=== PATIENT | female | born 1995 | race African-American/Black ===

== ENCOUNTER 2017-04-29 02:33 | Emergency (ER) | payer SELFPAY ==
[~2017-04-29] VITALS: Ht 170.2 cm; Wt 90.7 kg
[2017-04-29] VITALS (31 sets, daily range): BP systolic 92–153; BP diastolic 44–84
[2017-04-29] MEDS ORDERED: LORazepam Inj 2mg/ml 1ml IM ONE ×3 (02:45→19:45)
[2017-04-29] MEDS ORDERED: DiphenhydrAMINE 50mg/ml Inj IM ONE ×2 (03:00→20:15)
[2017-04-29] MEDS ORDERED: Haloperidol 5mg/ml Inj IM ONE ×2 (03:00→20:15)
[2017-04-29 04:14] LABS: BASOPHILS % (AUTO) 1.3 % (0.0-2.0); EOSINOPHILS % (AUTO) 0.5 % (0.0-3.0); HEMATOCRIT 41.8 % (37.0-47.0); HEMOGLOBIN 14.5 G/DL (12.0-16.0); LYMPHOCYTES % (AUTO) 35.9 % (20.0-45.0); MEAN CORPUSCULAR VOLUME 94 FL (80-99); MONOCYTES % (AUTO) 9.1 % (1.0-10.0); NEUTROPHILS % (AUTO) 53.3 % (45.0-75.0); PLATELET COUNT 235 K/UL (150-450); RED BLOOD COUNT 4.44 M/UL (4.20-5.40); RED CELL DISTRIBUTION WIDTH 11.4 % (11.6-14.8); WHITE BLOOD COUNT 5.8 K/UL (4.8-10.8)
[2017-04-29 04:20] LABS: ANION GAP 9 mmol/L (5-15); BLOOD UREA NITROGEN 10 mg/dL (7-18); CALCIUM 8.5 MG/DL (8.5-10.1); CARBON DIOXIDE 28 MMOL/L (21-32); CHLORIDE 103 MMOL/L (98-107); CREATININE 1.2 MG/DL (0.55-1.30); POTASSIUM 3.4 MMOL/L (3.5-5.1); SODIUM 140 MMOL/L (136-145)
[2017-04-29 04:24] LABS: ALANINE AMINOTRANSFERASE 38 U/L (12-78); ALBUMIN 3.8 G/DL (3.4-5.0); ALKALINE PHOSPHATASE 87 U/L (46-116); ASPARTATE AMINO TRANSFERASE 28 U/L (15-37); BILIRUBIN,TOTAL 0.5 MG/DL (0.2-1.0)
--- NOTE | 2017-04-29 06:46 | Emergency Room Report ---
History of Present Illness General Chief Complaint: Altered Level of Consciousness Source: EMS Present Illness HPI 21-year-old male identifying as female presents ED for evaluation. Patient brought in by EMS found altered on the street. Accu-Chek was in the 50s. States that patient was very agitated and combative. Appears confused. Patient is not providing name. Denies alcohol or drug use. States that she wants to leave. Denies suicidal or homicidal ideation. No other aggravating relieving factors. No other associated symptoms Allergies: Coded Allergies: UNABLE TO ASSESS (Unverified , 04/29/17) Patient History Past Medical History: none Past Surgical History: none Pertinent Family History: none Social History: Denies: smoking, alcohol use, drug use Last Menstrual Period: unknown Now: No Immunizations: UTD Reviewed Nursing Documentation: PMH: Agreed, PSxH: Agreed Nursing Documentation-PMH Past Medical History Deferred: Pt Cognitively Impaired Review of Systems All Other Systems: limited Physical Exam Vital Signs Date Time Temp Pulse Resp B/P (MAP) Pulse Ox O2 Delivery O2 Flow Rate FiO2 04/29/17 02:33 97.4 70 18 143/70 99 Room Air 97.3 Sp02 EP Interpretation: reviewed, normal General Appearance: no apparent distress, GCS 15, non-toxic, obese Head: normocephalic, atraumatic Eyes: bilateral eye normal inspection, bilateral eye PERRL ENT: hearing grossly normal, normal pharynx, no angioedema, normal voice Neck: full range of motion, supple/symm/no masses Respiratory: chest non-tender, lungs clear, normal breath sounds, speaking full sentences Cardiovascular #1: regular rate, rhythm, no edema Cardiovascular #2: 2+ carotid (R), 2+ carotid (L), 2+ radial (R), 2+ radial (L) , 2+ dorsalis pedis (R), 2+ dorsalis pedis (L) Gastrointestinal: normal bowel sounds, non tender, soft, non-distended, no guarding, no rebound Rectal: deferred Genitourinary: normal inspection, no CVA tenderness Musculoskeletal: back normal, gait/station normal, normal range of motion, non- tender Neurologic: other - confused, lethargic Psychiatric: other - lethargic Reflexes: 3+ bicep (R), 3+ bicep (L), 3+ tricep (R), 3+ tricep (L), 3+ knee (R) , 3+ knee (L) Skin: normal color, no rash, warm/dry, well hydrated Lymphatic: no adenopathy Medical Decision Making Diagnostic Impression: Primary Impression: Substance abuse ER Course Hospital Course 21-year-old F presents to ED with altered mental status. accucheck in 50s, agitated/combatitve Differential diagnoses include: Psychosis, EtOH, drug abuse Clinical course patient placed on stretcher. On awake overnight monitor. After initial history and physical ordered labs, IVFs, haldol/ativen/benedryl. placed in restraints Labs reviewed-electrolytes okay, no leukocytosis, hemoglobin/hematocrit stable, tox panel + for multilple substances Patient is now awake alert oriented. Patient will be discharged to home i. I feel this is a highly complex case requiring extensive working including EKG/Rhythm strip, Xray/CT/US, Blood/urine lab work, repeat exams while in ED, and administration of strong opiates/narcotics for pain control, admission to hospital or close patient follow up. Diagnosis - substance abuse Stable and discharged to home. Followup with PMD. Return to ED if symptoms recur or worsen Labs Test 04/29/17 03:45 04/29/17 04:04 Urine Opiates Screen Negative (NEGATIVE) Urine Barbiturates Screen Negative (NEGATIVE) Phencyclidine (PCP) Screen Negative (NEGATIVE) Urine Amphetamines Screen Positive (NEGATIVE) Urine Benzodiazepines Screen Negative (NEGATIVE) Urine Cocaine Screen Negative (NEGATIVE) Urine Marijuana (THC) Screen Positive (NEGATIVE) White Blood Count 5.8 K/UL (4.8-10.8) Red Blood Count 4.44 M/UL (4.20-5.40) Hemoglobin 14.5 G/DL (12.0-16.0) Hematocrit 41.8 % (37.0-47.0) Mean Corpuscular Volume 94 FL (80-99) Mean Corpuscular Hemoglobin 32.6 PG (27.0-31.0) Mean Corpuscular Hemoglobin Concent 34.6 G/DL (32.0-36.0) Red Cell Distribution Width 11.4 % (11.6-14.8) Platelet Count 235 K/UL (150-450) Mean Platelet Volume 7.8 FL (6.5-10.1) Neutrophils (%) (Auto) 53.3 % (45.0-75.0) Lymphocytes (%) (Auto) 35.9 % (20.0-45.0) Monocytes (%) (Auto) 9.1 % (1.0-10.0) Eosinophils (%) (Auto) 0.5 % (0.0-3.0) Basophils (%) (Auto) 1.3 % (0.0-2.0) Sodium Level 140 MMOL/L (136-145) Potassium Level 3.4 MMOL/L (3.5-5.1) Chloride Level 103 MMOL/L (98-107) Carbon Dioxide Level 28 MMOL/L (21-32) Anion Gap 9 mmol/L (5-15) Blood Urea Nitrogen 10 mg/dL (7-18) Creatinine 1.2 MG/DL (0.55-1.30) Estimat Glomerular Filtration Rate > 60 mL/min (>60) Glucose Level 83 MG/DL (74-106) Calcium Level 8.5 MG/DL (8.5-10.1) Total Bilirubin 0.5 MG/DL (0.2-1.0) Aspartate Amino Transf (AST/SGOT) 28 U/L (15-37) Alanine Aminotransferase (ALT/SGPT) 38 U/L (12-78) Alkaline Phosphatase 87 U/L (46-116) Total Protein 7.6 G/DL (6.4-8.2) Albumin 3.8 G/DL (3.4-5.0) Globulin 3.8 g/dL Albumin/Globulin Ratio 1.0 (1.0-2.7) Salicylates Level 3.1 ug/mL (2.8-20) Acetaminophen Level < 2 MCG/ML (10-30) Serum Alcohol 7 mg/dL Last Vital Signs Date Time Temp Pulse Resp B/P (MAP) Pulse Ox O2 Delivery O2 Flow Rate FiO2 04/29/17 06:27 97.3 65 17 100 Room Air 04/29/17 05:02 131/63 Status: improved Disposition: HOME, SELF-CARE Condition: Stable Referrals: NON PHYSICIAN (PCP) DREW MEANS M.D. Apr 29, 2017 06:46
--- NOTE | 2017-04-29 08:39 | Diagnostic Imaging Report ---
Indication: Altered mental status Technique: Continuous helical CT scanning of the head was performed without intravenous contrast material. Axial and coronal 5 mm sections were generated. Radiation dose was minimized using automated exposure control Dose: Total Dose Length Product - DLP 1115.[address] Dose Index - CTDIvol(s) 70.38 mGy. Comparison: Findings: The ventricular system is normal in size and configuration. There is no shift of midline structures. No abnormal extra-axial fluid collections are noted. There is no evidence of intracerebral bleeding. No other abnormal high or low density areas are noted within the brain. Impression: Normal CT scan of the head without contrast material. The CT scanner at [facility] is accredited by the [employer] and the scans are performed using protocols designed to limit radiation exposure to as low as reasonably achievable to attain images of sufficient resolution adequate for diagnostic evaluation.
--- NOTE | 2017-04-29 21:35 | Consultation ---
History of Present Illness General Date patient seen: Apr 29, 2017 Chief Complaint: Altered Level of Consciousness Present Illness HPI '21 yo transgender male to female pw to er. the pt stated that she has been hearing voices "Roxann wants to hurt me and i want to hurt myself" the pt was confused and sedated just received ativan Allergies: Coded Allergies: UNABLE TO ASSESS (Unverified , 04/29/17) Patient History Limited by: medical condition History Provided By: Patient, Medical Record, PMD Healthcare decision maker Resuscitation status Advanced Directive on File Past Medical/Surgical History Past Medical/Surgical History: (1) Substance abuse (2) Altered level of consciousness Review of Systems Psychiatric: Reports: prior hx, anxiety, depressed feelings, emotional problems , hallucinations Physical Exam General Appearance: no apparent distress, alert Neurologic: oriented x 3, responsive, depressed affect Last 24 Hour Vital Signs Date Time Temp Pulse Resp B/P (MAP) Pulse Ox O2 Delivery O2 Flow Rate FiO2 04/29/17 17:26 97.6 66 16 92/59 94 Room Air 97.6 04/29/17 12:00 98.0 54 18 100 Room Air 04/29/17 11:45 98.0 54 18 100 Room Air 04/29/17 11:30 98.0 54 16 100 Room Air 04/29/17 11:15 98.0 54 14 100 Room Air 04/29/17 11:00 98.0 54 14 100 Room Air 04/29/17 10:45 98.0 54 16 127/58 96 Room Air 98.0 04/29/17 10:45 98.0 54 16 100 Room Air 04/29/17 10:30 98.0 54 20 100 Room Air 04/29/17 07:56 62 14 120/59 100 Room Air 04/29/17 06:42 58 12 124/59 100 Room Air 04/29/17 06:41 97.3 56 12 100 Room Air 04/29/17 06:27 97.3 65 17 100 Room Air 04/29/17 06:12 97.3 69 15 100 Room Air 04/29/17 05:57 97.3 66 17 99 Room Air 04/29/17 05:42 97.3 68 19 100 Room Air 04/29/17 05:27 97.3 70 21 100 Room Air 04/29/17 05:12 97.3 72 14 100 Room Air 04/29/17 05:02 55 14 131/63 99 Room Air 04/29/17 04:57 97.3 57 14 100 Room Air 04/29/17 04:42 97.3 56 14 99 Room Air 04/29/17 04:27 97.3 59 16 98 Room Air 04/29/17 04:12 97.3 70 17 98 Room Air 04/29/17 03:57 97.3 64 16 100 Room Air 04/29/17 03:42 97.3 64 16 100 Room Air 04/29/17 03:27 97.3 76 20 100 Room Air 04/29/17 03:12 97.3 71 19 100 Room Air 04/29/17 02:57 97.3 77 16 99 Room Air 04/29/17 02:42 70 18 99 Room Air 04/29/17 02:42 97.3 70 18 143/70 99 Room Air 97.3 04/29/17 02:33 97.4 70 18 143/70 99 Room Air 97.3 Intake and Output 04/28/17 04/29/17 19:00 07:00 # Voids 1 Laboratory Tests Test 04/29/17 03:45 04/29/17 04:04 Urine Opiates Screen Negative (NEGATIVE) Urine Barbiturates Screen Negative (NEGATIVE) Phencyclidine (PCP) Screen Negative (NEGATIVE) Urine Amphetamines Screen Positive (NEGATIVE) H Urine Benzodiazepines Screen Negative (NEGATIVE) Urine Cocaine Screen Negative (NEGATIVE) Urine Marijuana (THC) Screen Positive (NEGATIVE) H White Blood Count 5.8 K/UL (4.8-10.8) Red Blood Count 4.44 M/UL (4.20-5.40) Hemoglobin 14.5 G/DL (12.0-16.0) Hematocrit 41.8 % (37.0-47.0) Mean Corpuscular Volume 94 FL (80-99) Mean Corpuscular Hemoglobin 32.6 PG (27.0-31.0) H Mean Corpuscular Hemoglobin Concent 34.6 G/DL (32.0-36.0) Red Cell Distribution Width 11.4 % (11.6-14.8) L Platelet Count 235 K/UL (150-450) Mean Platelet Volume 7.8 FL (6.5-10.1) Neutrophils (%) (Auto) 53.3 % (45.0-75.0) Lymphocytes (%) (Auto) 35.9 % (20.0-45.0) Monocytes (%) (Auto) 9.1 % (1.0-10.0) Eosinophils (%) (Auto) 0.5 % (0.0-3.0) Basophils (%) (Auto) 1.3 % (0.0-2.0) Sodium Level 140 MMOL/L (136-145) Potassium Level 3.4 MMOL/L (3.5-5.1) L Chloride Level 103 MMOL/L (98-107) Carbon Dioxide Level 28 MMOL/L (21-32) Anion Gap 9 mmol/L (5-15) Blood Urea Nitrogen 10 mg/dL (7-18) Creatinine 1.2 MG/DL (0.55-1.30) Estimat Glomerular Filtration Rate > 60 mL/min (>60) Glucose Level 83 MG/DL (74-106) Calcium Level 8.5 MG/DL (8.5-10.1) Total Bilirubin 0.5 MG/DL (0.2-1.0) Aspartate Amino Transf (AST/SGOT) 28 U/L (15-37) Alanine Aminotransferase (ALT/SGPT) 38 U/L (12-78) Alkaline Phosphatase 87 U/L (46-116) Total Protein 7.6 G/DL (6.4-8.2) Albumin 3.8 G/DL (3.4-5.0) Globulin 3.8 g/dL Albumin/Globulin Ratio 1.0 (1.0-2.7) Salicylates Level 3.1 ug/mL (2.8-20) Acetaminophen Level < 2 MCG/ML (10-30) L Serum Alcohol 7 mg/dL Height (Feet): 5 Height (Inches): 7.00 Weight (Pounds): 200 Assessment/Plan Status: stable, progressing Assessment/Plan substance induced psychosis dts -the pt should be reassessed -treat with antipsychotics Candelaria Levy M.D. Apr 29, 2017 21:35
[2017-04-30] VITALS (20 sets, daily range): BP systolic 106–129; BP diastolic 61–87
[2017-04-30] MEDS ORDERED: Haloperidol 5mg/ml Inj IM ONE (06:45)
--- NOTE | 2017-04-30 22:30 | Progress Note ---
DATE: 04/30/2017 SUBJECTIVE: The patient was not endorsing any suicidal or homicidal ideation. The patient has auditory hallucination, talking about Roxann, however, is not talking about being hurting her or any thoughts of hurting others. The patient was treated with another dose of Haldol this morning and it seems like the patient has stabilized. The patient gave us information that she has housing at [place]. MENTAL STATUS EXAMINATION: The patient is alert and oriented x3. Mood is neutral. Affect is constricted, congruent with mood. Thought process is concrete. Thought content, no suicidal or homicidal ideations. Positive for auditory hallucinations. Insight and judgment is fair. ASSESSMENT: Substance-induced psychosis, methamphetamine abuse. PLAN: 1. The patient will be discharged with a taxi voucher to her housing. 2. At this time, the patient is not meeting the criteria for imminent danger to self or others and not gravely disabled. Candelaria Levy M.D. DR: STEVEN JOB#: [id number] CC:
== END 2017-04-30 13:00 | disposition home or self-care (01) ==
LOC: EDBD 02:33 → EMR 02:45
DX: R41.82 Altered mental status, unspecified (principal); F19.10 Other psychoactive substance abuse, uncomplicated
CPT/HCPCS: 36415; 70450; 80053; 80307; 82962; 85025; 96372; 96374; 99285; G0480; J1200; J1630; 80329